=== PATIENT | male | born 1995 | race African-American/Black ===

== ENCOUNTER 2025-06-15 18:01 | Emergency (ER) | payer SELFPAY ==
--- NOTE | ~2025-06-15 | XR_ITS ---
EXAMINATION: XR chest 2V DATE: 06/15/2025 18:38 INDICATION: Tachycardia. TECHNIQUE: Frontal and lateral views of the chest were obtained. COMPARISON: None. FINDINGS: Heart size is normal. Lungs are free of acute processes. IMPRESSION: 1. No acute findings. Reviewed, dictated and finalized at location T. ER SCALER IMPRESSION: 1. No acute findings.
[2025-06-15 18:04] VITALS: BP 165/89; PULSE 125; RESP 20; TEMP 37.1; O2SAT 98
--- NOTE | 2025-06-15 18:15 | ECG_ITS ---
Test Date: 2025-06-15 18:18:30 Measurements Intervals [place] Rate: 132 P: 23 NH: 147 QRS: 18 QRSD: 102 T: 3 QT: 311 QTc: 461 Interpretive Statements SINUS TACHYCARDIA Electronically Signed On 06-16-2025 05:51:44 CERTIFIED PESTICIDE APPLICATOR by Gabe Retana D.O
[2025-06-15 18:30] LABS: Hematocrit 49.9 % (42.0-52.0); Hemoglobin 15.6 g/dL (14.0-18.0); Mean Corpuscular HGB Conc 31.3 g/dl (32-36); Mean Corpuscular Hemoglobin 27.1 pg (26-34); Mean Corpuscular Volume 86.8 fl (80-100); Platelet Count Result 487 k/mm3 (150-375); Red Blood Count 5.75 M/mm3 (4.6-6.20); White Blood Count 12.4 K/mm3 (4.5-10.0)
--- NOTE | 2025-06-15 18:33 | PC.NURSE ---
multiple attempts made to establish IV access, this RN called co-worker to see about establishing US guided IV.
[2025-06-15 18:42] LABS: INR 1.0; Partial Thromboplastin Time 24.7 Seconds (22.3-36.8); Prothrombin Time 12.7 Seconds (11.1-14.7)
[2025-06-15 18:56] LABS: Band Neutrophils Percent 1 % (0-6); Lymphocytes Absolute Manual 6.07 K/mm3 (1.1-4.5); Lymphocytes Percent Manual 49.0 % (18-44); Monocytes Absolute Manual 0.74 K/mm3 (0.1-0.90); Monocytes Percent Manual 6 % (3-9); Neutrophils Absolute Manual 5.58 K/mm3 (1.3-6.7); Neutrophils Percent Manual 44 % (46-73); Schistocytes None Seen; Total Cells Counted 100
[2025-06-15 18:57] LABS: Hypochromasia 1+
[2025-06-15 19:06] LABS: Alanine Aminotransferase 31 U/L (6-50); Albumin Level 4.5 g/dL (3.5-5.1); Alkaline Phosphatase 87 U/L (38-126); Anion Gap 11 mmol/L (4-12); Aspartate Amino Transferase 29 U/L (17-59); Bilirubin,Total 0.5 mg/dL (0.2-1.3); Blood Urea Nitrogen 14 mg/dL (9-20); Calcium 9.4 mg/dL (8.4-10.2); Carbon Dioxide 21 mmol/L (22-30); Chloride 104 mmol/L (98-107); Estimated CRCL calculation 139 ml/min; Estimated Glomerular Filt Rate > 60; Glucose 245 mg/dL (65-110); Lipase 69 U/L (23-300); Potassium 3.3 mmol/L (3.4-5.0); Sodium 136 mmol/L (137-145); Total Protein 8.1 g/dL (6.3-8.2)
--- OUTSIDE RECORDS SUMMARY | 2025-06-15 19:12 | XMS_ITS | Clinical Summary ---
Author Organization [facility] Address [facility] [place] [address] Care Team Providers Care Basic Acoustic Analyst Name Role Phone None, Provider MD Primary Care Provider Unavaila ble Allergies No known active allergies Medications No known medications Active Problems No known active problems Social History Tobacco Use Types Packs/Day Years Used Date Smoking Tobacco: Light Smoker Cigarettes Smokeless Tobacco: Never Comments:1 per day Alcohol Use Standard Drinks/Week Comments Yes 0 (1 standard drink = 0.6 oz pur e alcohol) Once in a blue lewis Sex and Gender Information Value Date Recorded Sex Assigned at Not on file Legal Sex Male 4:51 PM CDT Gender Identity Not on file Sexual Orientation Not on file Last Filed Vital Signs Vital Sign Reading Time Taken Comments Blood Pressure 140/99 12/20/2019 2:48 AM CDT Pulse 78 12/20/2019 2:48 AM CDT Temperature 36.6 C (97.9 F) 12/20/2019 2:48 AM CDT Respiratory Rate 18 12/20/2019 2:48 AM CDT Oxygen Saturation 98% 12/20/2019 2:48 AM CDT Inhaled Oxygen Concentration - - Weight 145.2 kg (320 lb) 12/20/2019 2:48 AM CDT Height 175.3 cm (5' 9) 12/20/2019 2:48 AM CDT Body Mass Index 47.26 12/20/2019 2:48 AM CDT Plan of Treatment Health Maintenance Due Date Last Done Comments Annual Physical 1996 Hepatitis C 2011 DTaP, Tdap and Td Vaccines ( 1 - Tdap) 2012 Hepatitis B Vaccines (1 of 3 - 19+ 3-dose series) 2012 Pneumococcal Vaccine: Pediat rics (0 to 5 Years) and At-Risk Patients (6 to 49 Years) (1 of 2 - PCV) 2012 HPV Vaccines (1 - 3-dose SCD M series) 2020 COVID-19 Vaccine ( - 2024-2 6 season) 2025 Influenza Adult (#1) 2025 Hepatitis A Vaccines Aged Out No long er eligible based on patient's age to complete this topic Meningococcal B Vaccine Aged Out No l onger eligible based on patient's age to complete this topic Meningococcal Vaccine Aged Out No franca keshawn eligible based on patient's age to complete this topic RSV Immunizations Under 20 Months Aged Out No longer eligible based on patient's age to complete this topic Care Teams Basic Acoustic Analyst Relationship Specialty Start Date End Date None, Provider, PCP - General 06/02/19
[2025-06-15 19:16] VITALS: PULSE 127
[2025-06-15 19:18] LABS: Troponin I < 0.012 ng/mL (0.000-0.034)
[2025-06-15] MEDS: SODIUM CHLORIDE 0.9% IV 1,000 ML 999 ML IV CONT (19:31)
--- NOTE | 2025-06-15 20:58 | ED.ARRPALP ---
HPI - Arrhythmia/Palpitations General Chief Complaint: Arrhythmia/Palpitations Stated Complaint: palpations Time Seen by Provider: 06/15/25 18:30 History of Present Illness HPI narrative: Patient is a 29-year-old male who presents ER with anxiousness racing of the heart. He did smoke some marijuana earlier today but then he went to a smoke shop and took a THC edible which he does not typically do. Originally he was trying to buy a THC pen when he was talked into getting the gummy. He is unsure the mg. He is unsure if it was another drugs other than THC. He has no chest pain. He began feeling unwell and started calling family members very anxious. Related Data Allergies Allergy/AdvReac Type Severity Reaction Status Date / Time No Known Allergies Allergy Verified 06/15/25 19:14 Review of Systems Review of Systems: All systems reviewed & are unremarkable except as noted in HPI and below Constitutional: Constitutional: Reports no additional constitutional complaints ENT: Reports system reviewed and no additional complaints, except as documented Cardiovascular: Cardiovascular: Reports no additional cardiovascular complaints Gastrointestinal: Gastrointestinal: Reports no additional gastrointestinal complaints Psychiatric: Psychiatric: Reports no additional psychiatric complaints PMFSH Past Medical History Medical History (Updated 06/15/25 @ 21:04 by Mike Lizarraga MD) Healthy adult male Surgical History Surgical History (Updated 06/15/25 @ 21:00 by Mike Lizarraga MD) No pertinent past surgical history Exam Narrative: GENERAL: Well-appearing, well-nourished, and in no acute distress. HEAD: Normocephalic, atraumatic. ENT: Mucous membranes moist. CHEST: Clear to auscultation. No respiratory distress. HEART: Regular rate and rhythm. Normal peripheral pulses. ABDOMEN: Soft, nontender, nondistended. EXTREMITIES: Normal range of motion. No edema. SKIN: Warm, dry, no rash. NEURO: Alert and oriented x3. PSYCH: Normal mood and affect. Course Course Emergency Course: Urinalysis with only cannabis. Patient appropriate for discharge. Received IV fluid. Vital Signs Vital signs: Vital Signs Temperature 98.8 F 06/15/25 18:04 Pulse Rate 125 H 06/15/25 18:04 Respiratory Rate 20 06/15/25 18:04 Blood Pressure 165/89 H 06/15/25 18:04 Pulse Oximetry 98 06/15/25 18:04 Oxygen Delivery Room Air 06/15/25 18:04 Temperature 98.8 F 06/15/25 18:04 Pulse Rate 127 H 06/15/25 19:16 Respiratory Rate 20 06/15/25 18:04 Blood Pressure 165/89 H 06/15/25 18:04 Pulse Oximetry 98 06/15/25 18:04 Oxygen Delivery Room Air 06/15/25 18:04 MDM - Arrhythmia/Palpitations Differential Diagnosis Differential diagnosis: Likely palpitations, anxiety, artial fibrillation, WPW and other (Drug side effect) Lab Data Attestation: I reviewed the patient's lab results. 06/15/25 18:23 06/15/25 18:49 Labs: Lab Results 06/15/25 06/15/25 06/15/25 Range/Units 18:23 18:49 20:59 WBC 12.4 H (4.5-10.0) K/mm3 RBC 5.75 (4.6-6.20) M/mm3 Hgb 15.6 (14.0-18.0) g/dL Hct 49.9 (42.0-52.0) % MCV 86.8 (80-100) fl MCH 27.1 (26-34) pg MCHC 31.3 L (32-36) g/dl RDW 12.9 (11.5-14.5) % Plt Count 487 H (150-375) k/mm3 MPV 8.5 (7.4-10.4) fl Immature Gran % (Auto) Not Reportable Neut % (Auto) Not Reportable Lymph % (Auto) Not Reportable Jackson % (Auto) Not Reportable Eos % (Auto) Not Reportable Baso % (Auto) Not Reportable Lymph # (Auto) Not Reportable Jackson # (Auto) Not Reportable Eos # (Auto) Not Reportable Baso # (Auto) Not Reportable Abs Immat Gran (auto) Not Reportable Absolute Neuts (auto) Not Reportable Absolute Nucleated RBC Not Reportable Total Counted 100 Neutrophils % (Manual) 44 L (46-73) % Band Neutrophils % 1 (0-6) % Lymphocytes % (Manual) 49.0 H (18-44) % Monocytes % (Manual) 6 (3-9) % Nucleated RBC % Not Reportable Abs Neuts (Manual) 5.58 (1.3-6.7) K/mm3 Abs Lymphs (Manual) 6.07 H (1.1-4.5) K/mm3 Abs Monocytes (Manual) 0.74 (0.1-0.90) K/mm3 Platelet Estimate Increased (Adequate) Hypochromasia 1+ Schistocytes None seen PT 12.7 (11.1-14.7) Seconds INR 1.0 APTT 24.7 (22.3-36.8) Seconds Sodium 136 L (137-145) mmol/L Potassium 3.3 L (3.4-5.0) mmol/L Chloride 104 (98-107) mmol/L Carbon Dioxide 21 L (22-30) mmol/L Anion Gap 11 (4-12) mmol/L BUN 14 (9-20) mg/dL Creatinine 0.99 (0.7-1.3) mg/dL Estim Creat Clear Calc 139 ml/min Estimated GFR > 60 (59 - ) Glucose 245 H (65-110) mg/dL Calcium 9.4 (8.4-10.2) mg/dL Total Bilirubin 0.5 (0.2-1.3) mg/dL AST 29 (17-59) U/L ALT 31 (6-50) U/L Alkaline Phosphatase 87 (38-126) U/L Troponin I < 0.012 (0.000-0.034) ng/mL Total Protein 8.1 (6.3-8.2) g/dL Albumin 4.5 (3.5-5.1) g/dL Lipase 69 (23-300) U/L Urine Opiates Screen Negative (Negative) Urine Methadone Screen Negative (Negative) Ur Barbiturates Screen Negative (Negative) Ur Phencyclidine Scrn Negative (Negative) Ur Amphetamine Screen Negative (Negative) U Benzodiazepines Scrn Negative (Negative) Urine Cocaine Screen Negative (Negative) U Cannabinoids Screen Positive A (Negative) Imaging Data Radiologist's impression: ITS Impressions Chest X-Ray 06/15/25 18:44 IMPRESSION: 1. No acute findings. ECG Data EKG #1: ECG completion date: 06/15/25 ECG completion time: 18:18 EKG Interpretation: tachycardia (132), sinus rhythm, non-specific ST changes, normal QRS, normal QT and NL axis Discharge Plan Discharge Clinical Impression: Anxiety, Cannabis abuse Patient Disposition: Home Condition: Stable Instructions: Antibiotic Form, Cannabis Use Disorder (ED), Anxiety (ED) Additional Instructions: Return ER if you have chest pain, he can not keep down food water, you lose consciousness, have additional concerns. Patient Language: Emirati Follow-up/Referrals: PHYSICIAN,TIRE MAINTENANCE TECHNICIAN [Primary Care Provider, Internal Medicine] Ben Cooney MD [Physician, Family Practice] - 1 Week
[2025-06-15 21:29] LABS: Cannabinoid Screen Urine Positive (Negative)
[2025-06-15 21:59] VITALS: BP 142/79; PULSE 103; RESP 16; O2SAT 99
[2025-06-15 22:00] VITALS: BP 142/79; PULSE 103; RESP 16; O2SAT 99
== END 2025-06-15 22:02 | disposition home or self-care (01) ==
PROVIDERS: Emergency Provider Emergency Medicine
DX: F41.9 Anxiety disorder, unspecified (principal); F12.90 Cannabis use, unspecified, uncomplicated; R00.0 Tachycardia, unspecified
CPT/HCPCS: 36415; 71046; 80053; 80307; 83690; 84484; 85025; 85610; 85730; 93005; 96360; 99284; J7030